=== PATIENT | male | born 1980 | race Two or more races ===

== ENCOUNTER 2023-07-12 09:52 | Emergency (ER) | payer BC ==
[~2023-07-12] VITALS: Ht 180.3 cm; Wt 95.5 kg
[2023-07-12 10:40] VITALS: BP 131/52; PULSE 117; O2SAT 97
[2023-07-12 11:28] LABS: COLOR,URINE ORANGE (Yellow); UA COLLECTION TYPE CLN CATCH MIDSTREAM
[2023-07-12 11:29] LABS: CLARITY,URINE SLIGHTLY CLOUDY (Clear)
[2023-07-12 11:41] LABS: BACTERIA,URINE 3+ /HPF (Neg); MUCUS STRANDS MODERATE /LPF (Neg); SQUAMOUS EPITHELIAL CELL,UR FEW /LPF (FEW); WBC,URINE 50-100 /HPF (0-4)
[2023-07-12 11:42] LABS: WBC CLUMPS,URINE FEW /HPF (NEGATIVE)
[2023-07-12 11:46] LABS: BASOPHILS % (AUTO) 0.3 % (0-1); EOSINOPHILS % (AUTO) 0.1 % (0-6); HEMATOCRIT 45.1 % (42.0-52.0); HEMOGLOBIN 15.5 g/dl (14.0-17.9); LYMPHOCYTES # (AUTO) 1.1 X10'3 (1.1-4.8); MEAN CORPUSCULAR HGB CONC 34.4 g/dL (33.0-36.5); MEAN CORPUSCULAR VOLUME 90.2 FL (78-98); MEAN PLATELET VOLUME 7.8 FL (7.4-10.4); MONOCYTES % (AUTO) 8.3 % (2-12); NEUTROPHILS # (AUTO) 10.4 X10'3 (1.8-7.7); NEUTROPHILS % (AUTO) 82.3 % (42-75); PLATELET COUNT 164 X10'3 (140-440); RED CELL DISTRIBUTION WIDTH 13.2 % (11.5-14.5); WHITE BLOOD COUNT 12.6 X10'3 (4.5-11.0)
[2023-07-12 11:55] LABS: ALANINE AMINOTRANSFERASE 55 U/L (12-78); ALBUMIN 3.8 G/DL (3.4-5.0); ALBUMIN/GLOBULIN RATIO 1.1 (1.1-1.5); ALKALINE PHOSPHATASE 97 IU/L (46-116); ANION GAP 6 (8-16); ASPARTATE AMINO TRANSFERASE 23 U/L (10-37); BILIRUBIN,TOTAL 1.7 MG/DL (0.1-1.0); BLOOD UREA NITROGEN 13 MG/DL (7-18); CALCIUM 8.8 MG/DL (8.5-10.1); CHLORIDE 102 MMOL/L (99-107); GLUCOSE 105 MG/DL (70-104); POTASSIUM 3.7 MMOL/L (3.5-5.1); SODIUM 137 MMOL/L (135-145); TOTAL CARBON DIOXIDE 29.5 MMOL/L (24-32); TOTAL PROTEIN 7.4 G/DL (6.4-8.2); eCRCL 101 ML/MIN; eGFR 82 ML/MIN
[2023-07-12 13:00] VITALS: RESP 16
[2023-07-12] MEDS ORDERED: CefTRIAXone 2gm/D5W 50ml BAG 50 ML IV ONE (13:00)
[2023-07-12] MEDS ORDERED: normal saline 1000ML IV soln IV ONE (13:00)
[2023-07-12] MEDS ORDERED: ketorolac trometh. 30mg/ml inj. IV ONE (13:00)
[2023-07-12] MEDS ORDERED: CIPR-259 PO (15:27)
[2023-07-12] MEDS ORDERED: IBUP-1984 PO (15:27)
[2023-07-12 15:47] VITALS: TEMP 98.9
[2023-07-15 06:16] LABS: CHLAMYDIA TRACHOMATIS, NAA Negative (Negative)
== END 2023-07-12 15:50 | disposition home or self-care (01) ==
LOC: ER 09:53
DX: N39.0 Urinary tract infection, site not specified (principal); N50.82 Scrotal pain; R11.2 Nausea with vomiting, unspecified; N50.812 Left testicular pain; Z79.2 Long term (current) use of antibiotics; Z79.899 Other long term (current) drug therapy
CPT/HCPCS: 36415; 71045; 74176; 76870; 80053; 81001; 83605; 83735; 84145; 85025; 87040; 87491; 87591; 93976; 96365; 96375; 99285; J0696; J1885; J7030; 96361